=== PATIENT | male | born 1980 | race Hispanic/Latino ===

== ENCOUNTER 2018-02-06 00:03 | Emergency (ER) | payer OTHER ==
[2018-02-06 00:16] VITALS: BP 144/94; PULSE 83; RESP 18; TEMP 98.2; O2SAT 98
[2018-02-06] MEDS ORDERED: Lidocaine 1% Inj (20ml) IJ ONE (02:36)
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
[2018-02-06] MEDS ORDERED: Lidocaine 1% Inj (20ml) ONE (02:54)
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
[2018-02-06] MEDS ORDERED: Tdap Vaccine 0.5 ml Vial (10-64 yrs) IM ONE ×2 (03:39→03:51)
[2018-02-06] MEDS ORDERED: Bacitracin 500 Units/gm Oint Foilpak UD ONE (03:51)
== END 2018-02-06 04:03 | disposition home or self-care (01) ==
LOC: H.ER 00:03
DX: S01.81XA Laceration without foreign body of other part of head, initial encounter (principal); Y04.0XXA Assault by unarmed brawl or fight, initial encounter; Y92.89 Other specified places as the place of occurrence of the external cause